=== PATIENT | male | born 1985 | race African-American/Black ===

== ENCOUNTER 2016-03-27 12:55 | Emergency (ER) | payer OTHER ==
[~2016-03-27] VITALS: Ht 167.6 cm; Wt 82.4 kg
[~2016-03-27 12:55] MED LIST: AMOXICILLIN500 M1 PO; CLEOCIN300 MG PO; FLEXERIL10 MG PO; MOTRIN800 MG PO; NAPROSYN500 MG PO; NORCO 5/3251 TABLET PO; NORCO 7.5/321 TABLET PO; TRAMADOL HCL50 MG PO; ULTRAM50 MG PO
[2016-03-27] MEDS ORDERED: MOTRIN800 MG PO (15:55)
[2016-03-27 16:05] VITALS: BP 144/92
== END 2016-03-27 16:05 | disposition home or self-care (01) ==
LOC: EXP 12:55 → EME 12:55 → EXP 16:05
DX: S00.83XA Contusion of other part of head, initial encounter (principal); Y04.8XXA Assault by other bodily force, initial encounter; Y07.9 Unspecified perpetrator of maltreatment and neglect
CPT/HCPCS: 70150; 99281; 99284

== ENCOUNTER 2016-06-20 20:33 | Emergency (ER) | payer OTHER ==
[~2016-06-20] VITALS: Ht 167.6 cm; Wt 79.5 kg
[2016-06-20 20:41] VITALS: BP 141/101
== END 2016-06-20 20:43 ==
LOC: EME 20:33
DX: F10.129 Alcohol abuse with intoxication, unspecified (principal); F17.200 Nicotine dependence, unspecified, uncomplicated
CPT/HCPCS: 99281; 99283